=== PATIENT | female | born 2005 | race Two or more races ===

== ENCOUNTER → 2025-02-23 | Outpatient (CLI) | payer BC, SELFPAY ==
--- NOTE | 2025-02-23 10:11 | XR_ITS ---
Examination: Pelvic ultrasound, transabdominal, complete Technique: Transabdominal ultrasound of the pelvis performed using grayscale imaging Date and time of exam: February 23, 2025 1021 hours INDICATIONS: Ovarian cystic disease diagnosed 7 years ago FINDINGS: Uterus 7.7 cm endometrial stripe 0.9 cm No uterine mass or intrauterine gestation Right ovary 9.2 cm, 7.6 x 7.9 x 8.1 cm septated right ovarian cyst Left ovary 4.6 cm arterial flow, 3.5 cm cyst IMPRESSION: No uterine mass or intrauterine gestation 7.6 x 7.9 x 8.1 cm septated right ovarian cyst 3.5 x 1.8 x 2.2 cm simple left ovarian cyst Recommend 3-6 month follow-up pelvic sonography.
[2025-02-23 11:32] LABS: Basophils % (Auto) 0 % (0-2.5); Eosinophils # (Auto) 0.1 Thou/mm3 (0.0-0.5); Eosinophils % (Auto) 1 % (0-10); Hematocrit 35.5 % (36.0-46.0); Hemoglobin 11.6 g/dL (12.0-16.0); Immature Granulocytes % (Auto) 0 % (0-0); Immature Granulocytes Auto 0.02 Thou/mm3 (0.00-0.00); Lymphocytes # (Auto) 2.4 Thou/mm3 (1.0-4.8); Lymphocytes % (Auto) 30 % (10-50); Mean Corpuscular HGB Conc 32.7 g/dl (31.0-37.0); Mean Corpuscular Hemoglobin 28.6 pg (25.0-35.0); Mean Corpuscular Volume 88 fL (80-100); Monocytes # (Auto) 0.6 Thou/mm3 (0.0-0.8); Monocytes % (Auto) 7 % (0-12); Neutrophils # (Auto) 4.9 Thou/mm3 (1.8-7.7); Neutrophils % (Auto) 61 % (37-80); Nucleated Red Blood Cell % 0 /100 WBC (0); Platelet Count 335 Thou/mm3 (140-440); RDW Standard Deviation 44.2 fL (36.4-46.3); Red Blood Count 4.05 Miln/mm3 (4.00-5.20)
[2025-02-23 11:40] LABS: Glucose Estimated Average 105 mg/dL (80-131); Hemoglobin A1C 5.3 % Hgb (4.8-6.0)
[2025-02-23 11:46] LABS: Follicle Stimulating Hormone 5.78 mIU/mL (See Note)
[2025-02-23 11:48] LABS: Alanine Aminotransferase 39 U/L (10-49); Albumin, Serum 4.3 gm/dL (3.5-5.0); Albumin/Globulin Ratio 1.4 (1.2-2.2); Alkaline Phosphatase 78 U/L (46-116); Anion Gap 8 (7-16); Aspartate Amino Transferase 20 U/L (0-34); BUN/Creatinine Ratio 11 Ratio (12-20); Bilirubin,Total 0.5 mg/dL (0.3-1.2); Blood Urea Nitrogen 8 mg/dL (9-23); C-Reactive Protein 1.2 mg/dL (0.0-0.9); Carbon Dioxide 28.4 mMol/L (20.0-31.0); Cardiac Risk Estimate 3.1 RATIO (3.7-5.6); Chloride 102 mMol/L (98-107); Cholesterol 115 mg/dL (132-200); Creatinine (Component) 0.7 mg/dL (0.6-1.3); Glucose 97 mg/dL (74-106); HDL Cholesterol 37 mg/dL (40-60); LDL Cholesterol,Calculated 53 mg/dL (0-130); Osmolality,Calculated 273 (275-295); Potassium 3.9 mMol/L (3.4-5.1); Sodium 138 mMol/L (136-145); Thyroid Stimulating Hormone 3.89 uIU/mL (0.55-4.78); Total Protein 7.3 gm/dL (5.7-8.2); Triglycerides 124 mg/dL (30-150); Uric Acid 2.8 mg/dL (3.1-7.8); eGFR > 60 See Note
[2025-02-23 11:50] LABS: Sed Rate (ESR) 43 mm/hr (0-20)
[2025-02-24 21:52] LABS: RA Screen Negative (Negative)
[2025-03-05 06:48] LABS: ANA Pattern NUCLEAR, SPECKLED; ANA Screen, IFA POSITIVE (NEGATIVE); DHEA Sulfate* 175 mcg/dL (51-321); Estradiol, Ultrasensitive* 39 pg/mL; Luteinizing Hormone* 1.8 mIU/mL; Prolactin* 14.8 ng/mL; Testosterone,Total* 41 ng/dL (2-45); Thyroid Peroxidase Antibodies* <1 IU/mL (<9)
== END | disposition home or self-care (01) ==
PROVIDERS: PCP Registered Nurse Community Health; Referring Provider Registered Nurse Community Health; Visit Provider Registered Nurse Community Health
DX: N83.201 Unspecified ovarian cyst, right side (principal); N83.202 Unspecified ovarian cyst, left side; D50.9 Iron deficiency anemia, unspecified; E66.01 Morbid (severe) obesity due to excess calories; R76.0 Raised antibody titer; Z82.49 Family history of ischemic heart disease and other diseases of the circulatory system; Z83.3 Family history of diabetes mellitus
CPT/HCPCS: 36415; 76856; 80053; 80061; 82627; 82670; 83001; 83002; 83036; 84146; 84403; 84439; 84443; 84550; 85025; 85652; 86038; 86140; 86376; 86430